=== PATIENT | female | born 1995 | race Caucasian/White ===

== ENCOUNTER 2018-04-26 09:54 | Emergency (ER) | payer BC ==
[2018-04-26 09:58] VITALS: RESP 18
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
--- NOTE | 2018-04-26 10:39 | XR ---
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 Dorsal soft tissue s welling. No acute fracture, subluxation, or dislocation is seen. IMPRESSION: 1. Dorsal soft tissue swelling. No acute osseous abnormality seen. 2. 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
[2018-04-26 11:30] VITALS: BP 120/68; PULSE 78; TEMP 97.8
== END 2018-04-26 11:28 | disposition home or self-care (01) ==
LOC: EC 09:54
DX: S90.32XA Contusion of left foot, initial encounter (principal); V00.148A Other scooter (nonmotorized) accident, initial encounter
CPT/HCPCS: 99283

== ENCOUNTER → 2021-01-01 | Outpatient (CLI) | payer BC | END | disposition home or self-care (01) | LOC: LABWHC1 16:36 | PROVIDERS: ATTEND Family Medicine | DX: U07.1 COVID-19 (principal) | CPT/HCPCS: U0003; C9803 ==

== ENCOUNTER 2021-06-28 10:12 | Day surgery (SDC) | payer BC ==
[2021-06-25 13:46] VITALS: BMI 35.7
[~2021-06-28 10:12] MED LIST: LACTATED RINGERS 1,000 ML IV SCH; LIDOCAINE 1% (10MG/ML) FOR IV START INTRADERMA PRN
[2021-06-28 10:33] VITALS: RESP 16; TEMP 97.2
[2021-06-28] MEDS ORDERED: LIDOCAINE 1% INJ 10MG/ML (20 ML MDV) ONE (11:16)
[2021-06-28] MEDS ORDERED: PROPOFOL 10 MG/ML 20 ML VIAL IV ONE (11:16)
--- NOTE | 2021-06-28 11:22 | P.HPIHPCON ---
History of Present Illness H&P Date: 06/28/21 25-year-old female presents for colonoscopy. She has had recent episodes of bright red blood per rectum. She denies any family history of colon cancer. She is unsure of any family history of Crohn's disease or ulcerative colitis. Consent for Procedure: I have explained the operation/procedure to the patient, including the risks, benefits, side effects, alternative therapies (including not receiving the proposed treatment or service), the likelihood of the patient achieving his/her goals, and potential recuperation problems for the procedure/sedation/analgesia, as well as any blood products, if indicated. I also explained to the patient the risks, benefits and side effects of the alternatives, as well as the risks related to not receiving the proposed procedure, care, treatment, or services. - Review of Systems All systems: negative Past Medical History Past Medical History: No Reported History Additional Past Medical History / Comment(s): Rectal bleeding x1. History of Any Multi-Drug Resistant Organisms: None Reported Past Surgical History: Hernia Repair Additional Past Surgical History / Comment(s): Hernia surgery when a child, wisdom teeth removal. Past Anesthesia/Blood Transfusion Reactions: No Reported Reaction Smoking Status: Never smoker - Past Family History Mother Additional Family Medical History / Comment(s): Autoimmune disease Medications and Allergies Home Medications Medication Instructions Recorded Confirmed Type No Known Home Medications 06/25/21 06/25/21 History Allergies Allergy/AdvReac Type Severity Reaction Status Date / Time No Known Allergies Allergy Verified 06/28/21 10:27 Surgical - Exam Osteopathic Statement: *. No significant issues noted on an osteopathic structural exam other than those noted in the History and Physical/Consult. Vital Signs Temp Pulse Resp BP Pulse Ox 97.2 F L 70 16 117/83 100 06/28/21 10:30 06/28/21 10:30 06/28/21 10:30 06/28/21 10:30 06/28/21 10:30 - General well nourished, no distress - Neck trachea midline - Respiratory normal respiratory effort - Abdomen Abdomen: soft, non tender Assessment and Plan Plan: 25-year-old female with recent rectal bleeding. Risks, benefits and alternatives were provided. Plan is for colonoscopy. Further recommendations after procedure.
--- NOTE | 2021-06-28 11:34 | P.PCN ---
Date of Procedure: 06/28/21 Preoperative Diagnosis: Rectal bleeding Postoperative Diagnosis: Internal hemorrhoids Procedure(s) Performed: Colonoscopy Anesthesia: MAC Surgeon: Olegario Baptiste Pathology: none sent Condition: stable Disposition: same day Indications for Procedure: 25-year-old female with recent episodes of rectal bleeding. Plan is for colonoscopy for further evaluation. Risks, benefits and alternatives were provided. Consent prior to attending the endoscopy suite. Operative Findings: Internal hemorrhoids Description of Procedure: The patient was brought into the endoscopy suite and placed in left lateral decubitus position and adequate sedation was achieved using conscious sedation. A digital rectal exam was performed and mild internal hemorrhoids were palpated. An endoscope was then placed in the rectum and advanced to the cecum as identified by landmarks including the appendiceal orifice and the ileocecal valve. The prep was good. The colonoscope was then slowly withdrawn, examining for any mucosal abnormalities. The cecum, ascending, transverse, descending and sigmoid colon were visualized adequately. There were no obvious neoplastic lesions noted throughout the colon. There were no obvious polyps noted throughout the colon. There was no evidence of diverticulosis. Retroflexion was performed in the rectum and internal hemorrhoids were visible. Excess air was removed, the colonoscope withdrawn and the procedure terminated. The patient was then transferred to the recovery unit in stable condition. Repeat colonoscopy should be performed at age 45 for screening purposes, unless otherwise symptomatic.
[2021-06-28 11:56] VITALS: BP 119/89; PULSE 68
== END 2021-06-28 12:14 | disposition home or self-care (01) ==
LOC: ORWHC2ENDO 10:12
PROVIDERS: ATTEND Surgery
DX: K64.8 Other hemorrhoids (principal)
CPT/HCPCS: 81025; 45378; J2001; J2704